=== PATIENT | female | born 1970 | race Caucasian/White ===

== ENCOUNTER 2017-11-26 08:34 | Observation (INO) | payer MEDICAID ==
[~2017-11-26 08:34] MED LIST: RINGER'S SOLUTION,LACTATED 1,000 ML IV PRN; ceFAZolin SODIUM 2 GM in DEXTROSE 5 % IN WATER 50 ML IV PRN
[2017-11-26] MEDS ORDERED: MIDAZOLAM HCL 2 MG/ML PO ONE (09:28)
[2017-11-26 09:41] LABS: Hematocrit 31.2 % (37.0-47.0); Hemoglobin 8.8 gm/dL (12.5-16.0); Mean Cell Volume 66.5 fl (78-100); Mean Corpuscular Hemoglobin 18.8 pg (27-31); Mean Corpuscular Hgb Conc 28.2 g/dl (32-36); Mean Platelet Volume 10.2 fl (6.0-9.5); Neutrophil # 3.4 K/mm3 (1.3-6.0); Neutrophil % 57.2 % (42-75.0); Platelet Count 310 K/mm3 (150-450); Red Blood Count 4.69 M/mm3 (4.2-5.4); Red Cell Distribution Width 20.2 % (11.5-14.0); White Blood Count 5.9 K/mm3 (4.0-10.5)
[2017-11-26 10:11] LABS: Albumin * 3.8 gm/dl (3.4-5.0); Anion Gap 13.5 mmol/L (6.8-13.8); BUN/Creatinine Ratio 15.7 (9.0-21.6); Bilirubin, Total 0.3 mg/dL (0.0-1.1); Ca. Corrected For Albumin 8.9 mg/dL (8.4-10.2); Calcium * 9.1 mg/dL (7.9-10.9); Carbon Dioxide 27.1 mmol/L (24-32.6); Potassium 4.6 mmol/L (3.4-4.6); Total Protein 7.8 gm/dL (6.2-8.2)
[2017-11-26] MEDS ORDERED: RINGER'S SOLUTION,LACTATED 1,000 ML IV ONE ×6 (10:39→18:00)
[2017-11-26] MEDS ORDERED: ceFAZolin SODIUM 1 GM VIAL IV ONE (12:10)
[2017-11-26] MEDS ORDERED: BUPIVACAINE HCL 50 ML VIAL IJ ONE ×2 (12:20)
--- NOTE | 2017-11-26 17:53 | OR ---
Operative Report - Dictated Report Narrative: DATE OF PROCEDURE: 11/26/2017 PROCEDURE: 1. Total laparoscopic hysterectomy, bilateral salpingectomy and lysis of adhesions (90 min). 2. Mini-laparotomy 3. Diagnostic cystoscopy. ANESTHESIA: General, endotracheal intubation. PREOPERATIVE DIAGNOSES: 1. Menorrhagia 2. Anemia (hgb 8.8 g) 3. Endometrial polyp 4. Endometrial mass (6.6 x 4.4 x 5 cm), suspected endometrial polyp vs submucosal fibroid 5. Enlarged uterus 13.1 x 11.5 x 10.6 cm 6. Obesity BMI 33.8, weight 101.3 kg 7. Status post x 2 (with transverse incision as well as with vertical skin incision) 8. Status post bilateral tubal ligation POSTOPERATIVE DIAGNOSES: 1. Menorrhagia 2. Anemia (hgb 8.8 g) 3. Endometrial polyp 4. Endometrial mass (6.6 x 4.4 x 5 cm), suspected endometrial polyp vs submucosal fibroid 5. Enlarged uterus 13.1 x 11.5 x 10.6 cm 6. Obesity BMI 33.8, weight 101.3 kg 7. Status post x 2 (with transverse incision as well as with vertical skin incision) 8. Status post bilateral tubal ligation SURGEON: Gem Harris M.D. [employer]IC[employer] HELPER: [place] [employer] FINDINGS: 1. Enlarged uterus about 13 x 12 x 11 cm, sounded to 12 cm. Both tubes and ovaries appeared normal with evidence of bilateral tubal ligations. 2. Dense adhesions in the lower uterine segment and in bilateral broad ligaments. 3. On cystoscopy, the bladder appeared intact and bilateral ureteral jets were seen. SPECIMENS: Uterus, cervix, and right tube removed in one piece, left tube removed separately DRAINS: None. URINE OUTPUT: 600 ml BLOOD LOSS: 300 ml INTRAOPARATIVE IV FLUIDS: 2800 ml COMPLICATIONS: None. DESCRIPTION OF PROCEDURE: The patient consented to the operation and was taken to the operating room. She was placed on the operating table supine. SCDs were placed on her lower extremities. General anesthesia was induced. Two gram of ancef was given by IV at the start of anesthesia induction. She was repositioned in the dorsal lithotomy position. Her right arm was tucked at her side under the drape. Exam under anesthesia revealed a 15 week size uterus with no descent and with a narrow vaginal canal. The abdomen was prepped with Chloraprep and the vagina was prepped with Betadine. She was draped in the usual sterile fashion. A time -out procedure was conducted to confirm the correct patient for the correct procedure. After time-out, a Lee catheter was placed into the bladder. A bivalve speculum was placed into the vagina. The vagina and the cervix were prepped with Betadine one more time. The anterior cervix was grasped with a single-tooth tenaculum. The uterus was sounded to 12 cm. A medium VCare uterine manipulator was inserted into the uterine cavity. The balloon was inflated with 6 cc of air. The single-tooth tenaculum was removed. [place] speculum was removed. The upper VCare cup was advanced into the vagina to hug the cervix. The lower VCare cup was advanced into the vagina to align with the upper VCare cup and to provide pneumoperitoneum for the procedure. The lower VCare cup was fastened to the uterine manipulator. The surgeon then changed gloves and attention was paid to the abdomen. A small vertical incision was made at the lower edge of the umbilicus. A Veress needle was inserted into the abdominal cavity. Intraabdominal placement was confirmed with a saline drop test and with low entry pressure of 2 mmHg. The abdomen was insufflated with CO2 gas to an intraabdominal pressure of 15 mmHg. The Veress needle was removed. A 5 mm trocar with the laparoscope was inserted through the umbilicus incision into the abdomen. Intraabdominal placement was confirmed with the laparoscope. Survey of the entry site revealed no trauma to the underlying structures. Survey of the upper abdomen revealed normal appearing gall bladder and liver. The patient was then placed in Trendelenburg position. A left and a right lower quadrant trocars (5 mm) were placed superior and medial to the anterior superior iliac spine to avoid vessels and nerves. A 12 mm suprapubic trocar was attempted, but could not be placed due to very dense scar in the area. So a 5 mm suprapubic trocar was placed in the midline. Another lower midline trocar was placed midway between the suprapubic trocar and the umbilical trocar. All trocars were placed under the direct visualization of the laparoscope. Survey of the abdomen and pelvis revealed the findings noted above. Attention was now turned to the left side. The left fallopian tube was elevated. lThe mesosalpinx was divided with the Thunderbeat. The division was carried to the tubal ligation site at which point the distal portion of the tube was removed through the suprapubic trocar. The uteroovarian ligament was divided with the Thunderbeat and the division was carried on the broad ligament through the round ligament. The broad ligament was thickened and shortened. It was divided and carefully dissected. The anterior leaf of the broad ligament was dissected towards the bladder uterine reflection. Dense adhesions were encountered here. It was carefully dissected to free the bladder down. The posterior leaf of the broad ligament was dissected towards the uterosacral ligament. A 30 degree laparoscope was used to help visualize the lower uterine segment and the uterine vessel. The left uterine vessel was isolated and divided with the Thunderbeat. The cardinal ligament complex was divided with the Thunderbeat to the level of vaginal cervical junction. Attention was now turned to the right side. The right fallopian tube was elevated. The mesosalpinx was divided with the Thunderbeat and carried to the cornual region. The uteroovarian ligament was divided with the Thunderbeat and the division was carried on the broad ligament through the round ligament towards the lower uterine segment. The course of the right ureter was not identified due to obesity, but believed to be away from the surgical field. Again, the broad ligament was thickened and it was divided and dissected carefully to the bladder uterine reflection and to meet with the opposite dissection point at the midline. Dense adhesions were carefully lysed. The right uterine vessel was isolated, and divided with the Thunderbeat. The cardinal ligament complex was divided with the Thunderbeat to the level of vaginal cervical junction. A lapaorscopic myoma screw was used to help facilitate the manipulation of the uterus. The vaginal fornix was seen well through the VCare cup. The Thunderbeat was used to make an anterior colpotomy over the VCare cup groove. Entry into the vagina was without complications. A circumferential incision was made along the vaginal cervical junction using the VCare cup groove as a guide. Bilateral uterosacral ligament was divided. The cervix was completely divided from the vagina. Due to the large size of the uterus, it was not possible to remove the uterus through the vagina. So it was decided to make a mini-laparotomy to remove the uterus. All laparoscopic intruments were removed from the abdomen. The trocars were left in place. The VCare uterine manipulator was removed. The vagina was packed with 2 moist laps to keep the pneumoperitoneum. The surgeon then changed gloves and attention was paid back to the abdomen. A lower transverse skin incision was made with a scalpel just below the previous scar. The incision was carried through the subcutaneous layer to the fascia with a sparkle. The fascia was incision at the midline and extended. The midline was dissected with both sharp and blunt dissection. The pre peritoneal fat was dissected and the peritoneum was entered sharply. The peritoneum incision was extended. The cervix was delivered through the incision and grasped with towel clips. The uterus and the cervix and the right tube were removed through the abdominal incision in one piece. The peritoneum was closed with 2-0 Vicryl. The fascia was closed with 0 Vicryl continuously. The subcutaneous layer was irrigated with saline and closed with 2-0 Vicryl in an interrupted fashion. The skin was closed with 3-0 monicryl suture in a subcuticular fashion. Attention was now paid back to the laparoscopy portion of the procedure. The pelvis was thoroughly irrigated with saline. The vaginal opening was closed transversely with 0 Vicryl Endoknot suture in an interrupted fashion using both intracorporeal and extracorporeal suturing techniques. The uterosacral ligament was sutured to the vaginal cuff corner for cuff support. The pelvis was irrigated with saline. Extra fluid was suctioned out from the abdomen and pelvis. There was hemostasis in all vessel pedicles. The patient was taken out of Trendelenburg. The lower abdominal trocars were removed. The abdomen was deflated. The trocar at the umbilicus was removed with the laparoscope. The skin incisions were closed with 4-0 Monocryl suture. A total of 12 ml of 0.25% Marcaine was infiltrated around each incision for post op pain management. The incisions were covered with Steri-Strips, Telfa and ABD. A diagnostic cystoscopy was performed. Vaginal packing was removed and the Lee catheter was removed. A 70-degree cystoscope was introduced through the urethra into the bladder. Exam of the bladder revealed the bladder was intact. There were urine jets coming out from the left as well as the right ureteral orifice, confirming the integrity of ureters. The cystoscope was removed. The Lee catheter was not replaced. The patient tolerated the procedure well. All counts were correct and the patient was taken to the recovery room in stable condition. Gem Harris MD
[2017-11-26] MEDS ORDERED: ONDANSETRON HCL/PF 2 MG/ML VIAL IV PRN (17:59)
[2017-11-26] MEDS: RINGER'S SOLUTION,LACTATED 1,000 ML IV PRN (19:00)
[2017-11-26] MEDS: oxyCODONE HCL 5 MG TABLET PO SCH ×2 (19:29→23:54)
[2017-11-27] MEDS: RINGER'S SOLUTION,LACTATED 1,000 ML IV PRN (02:17)
[2017-11-27 05:20] LABS: Mean Cell Volume 66.3 fl (78-100); Mean Corpuscular Hemoglobin 19.1 pg (27-31); Mean Corpuscular Hgb Conc 28.8 g/dl (32-36); Mean Platelet Volume 10.1 fl (6.0-9.5); Platelet Count 271 K/mm3 (150-450); Red Blood Count 3.92 M/mm3 (4.2-5.4); Red Cell Distribution Width 19.9 % (11.5-14.0); White Blood Count 9.1 K/mm3 (4.0-10.5)
[2017-11-27] MEDS: oxyCODONE HCL 5 MG TABLET PO SCH ×2 (05:23→11:06)
[2017-11-27 05:27] LABS: Hemoglobin 7.5 gm/dL (12.5-16.0)
[2017-11-27] MEDS: IBUPROFEN 800 MG TABLET PO PRN ×2 (06:51→13:13)
--- NOTE | 2017-11-27 13:23 | PN ---
Subjective - Date and Time Seen Date: 11/27/17 Objective Objective Narrative: Post op day 1, s/p TLH, BS, TONY and minilaparoscopy for a very large uterus. EBL was 300 ml. Hemoglobin was 7.5 today, pre-op was 8.8, consistent with blood loss. she has no complaints except incision pain. she was having a lot of pain last night and this is better now and controlled with pain medications today. ambulating well without dizziness or short of breath. tolerated a regular diet. voided. no BM yet. discussed the procedure, OR findings and post op precautions at round. - Vitals Vitals: Last Vital Signs Temp 36.7 C 11/27/17 08:02 Pulse 64 11/27/17 08:02 Resp 16 11/27/17 08:02 BP 127/79 11/27/17 08:02 Pulse Ox 100 11/27/17 08:02 - Abnormal Lab Findings Abnormal Lab Findings: Abnormal Lab Results 11/27/17 Range/Units 05:18 RBC 3.92 L (4.2-5.4) M/mm3 Hgb 7.5 L* (12.5-16.0) gm/dL Hct 26.0 L (37.0-47.0) % MCV 66.3 L (78-100) fl MCH 19.1 L (27-31) pg MCHC 28.8 L (32-36) g/dl RDW 19.9 H (11.5-14.0) % MPV 10.1 H (6.0-9.5) fl Immature Gran # (Auto) 0.04 H (0.000-0.0310) K/mm3 Neutrophils % 77.0 H (42-75.0) % Lymphocytes % 11.9 L (20-51) % Monocytes % 10.6 H (0.0-9) % Neutrophils # 7.0 H (1.3-6.0) K/mm3 Lymphocytes # 1.08 L (1.5-3.5) k/mm3 - Exam Constitutional: Present: Alert, Oriented x3, Cooperative Respiratory: Present: no respiratory distress Cardiovascular/Chest: Present: normal peripheral pulses Abdomen: Present: soft, nondistended, other - incision dry and clean with steri strips intact Extremity: Present: normal range of motion, no pedal edema, no calf tenderness Skin Exam: Present: normal color, warm/dry, no cyanosis, pallor Appearance: Present: appropriate appearance Eye contact: Present: cooperative, good eye contact, normal speech Assessment/Plan Plan Narrative: A: post op day 1, s/p TLH, BS, TONY and minilaparoscopy with anemia, asymptomatic , stable and well. Plan: will discharge home today. michael Harris MD
--- NOTE | 2017-11-27 13:32 | DS ---
(1) Menorrhagia Problem: Acute (2) Dysmenorrhea Problem: Acute (3) Endometrial polyp Problem: Acute (4) Endometrial mass Problem: Acute (5) Enlarged uterus Problem: Acute (6) Anemia Problem: Acute (7) Previous section Problem: Acute (8) Obesity (BMI 30.0-34.9) Problem: Acute Description of Stay: patient underwent a total laparoscopic hysterectomy with bilateral salpingectomy , lysis of adhesions, minimaparotomy to remove the large uterus and cystoscopy. She recovered well from surgery. She is anemic, but asymptomatic. She is ready to go home. Procedures Performed: see notes below - total laparoscopic hysterectomy, bilateral salpingectomy, lysis of adhesions, minilaparotomy, cystocscopy Discharge Location: Home Disposition: Home self-care Condition: Stable Discharge Activity: Activity as tolerated, Other - no heavy lifting or strenous activity until follow up Discharge Diet: General/regular food Problem Oriented Discharge Instructions to Patient/Family: Total Laparoscopic Hysterectomy Additional Patient Instructions (free text): Follow up with Dr. Harris next week 12-03-17 @ 2:30pm. May shower starting tomorrow - no bathing. Notify physician if increased pain, fever, foul odor and/or drainage from incision sites, or any other concerns. Prescriptions (Any new or edited meds): Ibuprofen [Motrin] 800 mg PO Q8H PRN #30 tablet PRN Reason: Pain oxyCODONE HCL [Oxycodone HCl] 5 - 10 mg PO Q4H #30 tablet Complete Home Medications List: Complete Home Medication List: Ascorbic Acid [Vitamin C] 500 mg PO BID 11/25/17 Ferrous Sulfate 325 mg PO BID 11/25/17 Cetirizine HCl [Zyrtec] 10 mg PO DAILY 11/26/17 Diclofenac Sodium 75 mg PO BID 11/26/17 Norethindrone [Naty] 0.35 mg PO QDIPM 11/26/17 Norethindrone-E.estradiol-Iron [Loestrin Fe 1.5-30 Tablet] 1 each PO DAILY 11/26 Ibuprofen [Motrin] 800 mg PO Q8H PRN #30 tablet 11/27/17 oxyCODONE HCL [Oxycodone HCl] 5 - 10 mg PO Q4H #30 tablet 11/27/17
[2017-11-27 14:50] VITALS: BP 141/74
== END 2017-11-27 15:42 | disposition home or self-care (01) ==
LOC: AMB 08:34 → MS 14:27
PROVIDERS: ADMIT Obstetrics & Gynecology; ATTEND Obstetrics & Gynecology
PROC: 0UT94ZZ Resection of Uterus, Percutaneous Endoscopic Approach (ICD-10-PCS; principal; 2017-11-26)
PROC: 0UT74ZZ Resection of Bilateral Fallopian Tubes, Percutaneous Endoscopic Approach (ICD-10-PCS; 2017-11-26)
DX: N92.0 Excessive and frequent menstruation with regular cycle; D25.1 Intramural leiomyoma of uterus; E66.9 Obesity, unspecified; D64.9 Anemia, unspecified; Z68.35 Body mass index [BMI] 35.0-35.9, adult; N99.4 Postprocedural pelvic peritoneal adhesions; N94.6 Dysmenorrhea, unspecified; N84.0 Polyp of corpus uteri; N85.2 Hypertrophy of uterus
CPT/HCPCS: 36415; 58573; 80053; 84703; 85025; 86850; 86900; 88307; G0378